=== PATIENT | female | born 1950 | race Hispanic/Latino ===

== ENCOUNTER 2024-05-24 06:30 | Day surgery (SDC) | payer OTHER ==
[2024-05-23 16:16] LABS: BASOPHILS # (AUTO) 0.03 K/uL (0.00-0.20); BASOPHILS % (AUTO) 0.5 % (0.0-5.0); EOSINOPHILS # (AUTO) 0.14 K/uL (0.00-0.70); EOSINOPHILS % (AUTO) 2.4 % (0.0-8.0); HEMATOCRIT 32.9 % (36-48); IMMATURE GRANULOCYTE ABSOLUTE 0.01 K/uL (0-1); LYMPHOCYTES # (AUTO) 1.7 K/uL (1.0-4.8); LYMPHOCYTES % (AUTO) 28.9 % (21.0-51.0); MEAN CORPUSCULAR HEMOGLOBIN 31.4 pg (27.0-33.0); MEAN CORPUSCULAR HGB CONC 32.5 g/dL (32.0-36.0); MEAN CORPUSCULAR VOLUME 96.5 fL (79-99); MONOCYTES # (AUTO) 0.5 K/uL (0.1-1.0); MONOCYTES % (AUTO) 8.2 % (3.0-13.0); NEUTROPHILS # (AUTO) 3.5 K/uL (1.8-7.7); NEUTROPHILS % (AUTO) 59.8 % (40.0-77.0); PLATELET COUNT (AUTO) 131 K/uL (130-400); RED BLOOD CELL COUNT(AUTO) 3.41 MIL/uL (4.00-5.50); RED CELL DISTRIBUTION WIDTH 13.7 % (11.0-15.5); WHITE BLOOD COUNT (AUTO) 5.8 K/uL (4.8-10.8)
[2024-05-23 16:23] LABS: CREATININE 2.7 mg/dL (0.5-1.0); POTASSIUM 3.7 mmol/L (3.5-5.1)
[2024-05-23 16:24] LABS: INR 0.98 (0.85-1.15); PROTHROMBIN TIME 10.6 SEC (9.6-11.6)
[2024-05-23 16:26] LABS: PARTIAL THROMBOPLASTIN TIME 65.2 SEC (26.3-35.5)
[2024-05-23 16:37] VITALS: BP 183/63; PULSE 53; RESP 18
[~2024-05-24] VITALS: Ht 146.3 cm; Wt 45.9 kg
[2024-05-24] VITALS (17 sets, daily range): BP systolic 130–157; BP diastolic 50–70; PULSE 55–76; RESP 12–16
[~2024-05-24 06:30] MED LIST: ALEN70TA80 PO; AMLO-258 PO; ATOR10TA69 PO; CLOP75TA32 PO; HYDR25TA67 PO; LISI20TA24 PO
[2024-05-24] MEDS ORDERED: CEFAZOLIN SODIUM 2 GM VIAL ONE (06:36)
[2024-05-24] MEDS ORDERED: CEFAZOLIN SODIUM 1 GM VIAL ONE (07:09)
[2024-05-24] MEDS: 0.9% NACL 500ML IV.SOLN 500 ML IV ONE (07:47)
[2024-05-24] MEDS ORDERED: LIDOCAINE PF 100MG/5ML (2%) SYRINGE 5ML ONE ×2 (08:07→08:08)
[2024-05-24] MEDS ORDERED: DEXAMETHASONE SOD PHOSPHATE 10MG/ML 1ML VIAL ONE (08:07)
[2024-05-24] MEDS ORDERED: NEOSTIGMINE METHYLSULFATE 1MG/ML IV ONE (08:08)
[2024-05-24] MEDS ORDERED: ONDANSETRON 4MG INJ ONE (08:08)
[2024-05-24] MEDS ORDERED: PROPOFOL 10 MG/ML 20ML VIAL IV ONE (08:08)
[2024-05-24] MEDS ORDERED: ROCURONIUM BROMIDE 10MG/1ML 5ML VL ONE (08:08)
[2024-05-24] MEDS ORDERED: GLYCOPYRROLATE 0.2 MG/ML 5 ML VIAL ONE (08:08)
[2024-05-24] MEDS ORDERED: FENTANYL CITRATE PF 50 MCG/1 ML 2ML VIAL ONE (08:08)
[2024-05-24] MEDS ORDERED: SUCCINYLCHOLINE CHLORIDE 20 MG/ML 10 ML VIAL ONE (08:08)
[2024-05-24] MEDS: CEFAZOLIN SODIUM 2 GM VIAL IVPB ONE (08:25)
[2024-05-24] MEDS ORDERED: BUPIVACAINE/PF 0.25% 30ML VIAL IJ ONE (08:26)
[2024-05-24] MEDS ORDERED: LIDOCAINE HCL 1% 20 ML VIAL ONE (08:26)
[2024-05-24] MEDS ORDERED: ATROPINE 1MG SYG IVP ONE (08:59)
[2024-05-24] MEDS ORDERED: EPHEDRINE SULFATE 50 MG/ML AMPULE ONE (09:21)
[2024-05-24] MEDS ORDERED: PROTAMINE SULFATE 10 MG/ML 25ML VIAL IV ONE (09:55)
[2024-05-24] MEDS ORDERED: HEPARIN 10,000 UNIT/10ML (1,000 UNIT/ML) VIAL ONE (09:55)
== END 2024-05-24 12:05 | disposition home or self-care (01) ==
LOC: DAH 06:30
PROVIDERS: ATTEND Thoracic Surgery (Cardiothoracic Vascular Surgery)
DX: I12.0 Hypertensive chronic kidney disease with stage 5 chronic kidney disease or end stage renal disease (principal); E11.22 Type 2 diabetes mellitus with diabetic chronic kidney disease; N18.6 End stage renal disease; I77.0 Arteriovenous fistula, acquired; E78.5 Hyperlipidemia, unspecified; Z79.899 Other long term (current) drug therapy
CPT/HCPCS: 36415; 71045; 80048; 82948; 84132; 85025; 85610; 85730; 86850; 86900; 86901; 93005; J0330; J0461; J0690; J1100; J1644; J2001; J2405; J2704; J2710; J2720; J3010; J3490; J7040; A4213; A4215; A4221; A4222; A4223; A4452; A4649; A6207; A6260; A6446; C1713; C1768; C9250; G0168; J0665